=== PATIENT | female | born 2000 | race African-American/Black ===

== ENCOUNTER 2022-08-28 18:45 | Observation (INO) | payer MEDICAID ==
[~2022-08-28] VITALS: Ht 165.1 cm; Wt 142.9 kg
[2022-08-28] MEDS ORDERED: PNV1TABL76 PO (19:42)
== END 2022-08-28 23:45 | disposition hospice, home (50) ==
LOC: INTOOBSV 18:45 → 8 EST LDRP 18:45
PROVIDERS: ADMIT Obstetrics & Gynecology; ATTEND Obstetrics & Gynecology
DX: O36.8130 Decreased fetal movements, third trimester, not applicable or unspecified (principal); Z3A.39 39 weeks gestation of pregnancy
CPT/HCPCS: 59025; 76815; 76818; G0378; 99281

== ENCOUNTER 2022-08-31 15:35 | Observation (INO) | payer MEDICAID ==
[~2022-08-31] VITALS: Ht 165.1 cm; Wt 142.9 kg
[~2022-08-31 15:35] MED LIST: PNV1TABL76 PO
== END 2022-08-31 17:55 | disposition home or self-care (01) ==
LOC: 8 EST LDRP 15:35
PROVIDERS: ADMIT Obstetrics & Gynecology; ATTEND Obstetrics & Gynecology
DX: O62.9 Abnormality of forces of labor, unspecified (principal); Z3A.39 39 weeks gestation of pregnancy
CPT/HCPCS: 59025; G0378; 99281

== ENCOUNTER 2022-09-02 14:27 | Inpatient (IN) | payer MEDICAID ==
[~2022-09-02] VITALS: Ht 167.6 cm; Wt 142.9 kg
[2022-09-02] MEDS ORDERED: BUTORPHANOL TARTRATE 2 MG/ML VIAL IV PRN (15:30)
[2022-09-02] MEDS ORDERED: METHYLERGONOVINE MALEATE 0.2 MG/ML IM PRN (15:30)
[2022-09-02] MEDS ORDERED: NALOXONE HCL 0.4 MG/ML 1ML VIAL IM PRN (15:30)
[2022-09-02] MEDS ORDERED: LIDOCAINE HCL 1% 20ML VIAL (Pyxis) INJ INFIL SCH (15:30)
[2022-09-02] MEDS: LACTATED RINGERS 1,000 ML IV SCH ×2 (15:49→18:54)
[2022-09-02] MEDS: OXYTOCIN 30 UNITS/500ML NS PMX 500 ML IV SCH ×2 (15:58→23:37)
[2022-09-02 16:06] LABS: CLARITY URINE CLEAR (CLEAR); COLOR URINE DARK YELLOW (YELLOW); KETONES URINE TRACE (NEGATIVE); LEUKOCYTE ESTERASE URINE TRACE (NEGATIVE); NITRITE URINE NEGATIVE (NEGATIVE); OCCULT BLOOD URINE TRACE (NEGATIVE); PH URINE 5.5 (4.5-8.0); PROTEIN URINE TRACE (NEGATIVE); SPECIFIC GRAVITY URINE 1.024 (1.005-1.030)
[2022-09-02 16:12] LABS: BASOPHILS % 0.2 % (0.0-2.0); EOSINOPHILS % 1.7 % (0.0-5.0); HEMATOCRIT. 31.4 % (36.0-48.0); HEMOGLOBIN. 10.4 g/dL (12.0-16.0); LYMPHOCYTES % 12.8 % (20.0-50.0); MEAN CORPUSCULAR VOLUME 78.2 fL (81.0-99.0); MONOCYTES % 8.7 % (2.0-8.0); NEUTROPHILS % 76.6 % (40.0-76.0); PLATELET 305 x1000/uL (130-400); RED BLOOD CELL COUNT 4.01 mill/uL (4.2-5.4); RED CELL DISTRIBUTION WIDTH 16.7 % (11.6-14.6)
[2022-09-02 16:20] LABS: *AMPHETAMINES SCREEN URINE NEGATIVE (NEGATIVE); *BARBITURATES SCREEN URINE NEGATIVE (NEGATIVE); *BENZODIAZEPINES SCREEN URINE NEGATIVE (NEGATIVE); *COCAINE SCREEN URINE NEGATIVE (NEGATIVE); CANNABINOID URINE SCREEN NEGATIVE (NEGATIVE); METHADONE URINE SCREEN NEGATIVE (NEGATIVE); OPIATES URINE SCREEN NEGATIVE (NEGATIVE); PHENCYCLIDINE URINE SCREEN NEGATIVE (NEGATIVE)
[2022-09-02 16:23] LABS: INR 0.9; PARTIAL THROMBOPLASTIN TIME 24.8 sec (23.4-31.0); PROTHROMBIN TIME 9.8 sec (9.6-11.0)
[2022-09-02] MEDS ORDERED: ROPIVACAINE HCL/PF EPIDURAL 200 ML EPI SCH (18:00)
[2022-09-02] MEDS ORDERED: ROPIVACAINE HCL/PF EPIDURAL 200 ML EPI ONE (18:17)
[2022-09-02] MEDS ORDERED: IBUPROFEN 400MG TABLET PO PRN (20:45)
[2022-09-02] MEDS ORDERED: LANOLIN OINT 7GM TUBE TOP PRN (20:45)
[2022-09-02] MEDS ORDERED: RHO(D) IMMUNE GLOBULIN 300 MCG/SYR IM PRN (20:45)
[2022-09-02] MEDS ORDERED: BISACODYL 10MG SUPP PR PRN (20:45)
[2022-09-02] MEDS ORDERED: BENZOCAINE/LANOLIN/ALOE VERA SPRAY TOP PRN (20:45)
[2022-09-02] MEDS ORDERED: GLYCERIN/WITCH HAZEL LEAF MEDICATED PAD TOP PRN (20:45)
[2022-09-02] MEDS ORDERED: HEMORRHOIDAL SUPP PR PRN (20:45)
[2022-09-02] MEDS ORDERED: OXYCODONE HCL/ACETAMINOPHEN 5/325MG TABLET PO PRN (20:45)
[2022-09-02] MEDS ORDERED: DIPHENHYDRAMINE 25MG CAPSULE PO PRN (20:45)
[2022-09-02] MEDS ORDERED: DOCUSATE SODIUM 100MG CAPSULE PO SCH (21:00)
[2022-09-02 23:50] VITALS: BP 108/54
[2022-09-03] MEDS: IBUPROFEN 800MG TABLET PO PRN ×2 (00:18→22:56)
[2022-09-03 01:00] VITALS: BP 97/52
[2022-09-03 04:00] VITALS: BP 106/52
[2022-09-03] MEDS: FERROUS SULFATE 325MG TABLET PO SCH ×3 (07:30→17:27)
[2022-09-03] MEDS: MAGNESIUM/ALUMINUM HYDROXIDE/SIMETHICONE 30ML UDC PO SCH ×4 (07:30→22:55)
[2022-09-03 07:35] LABS: BASOPHILS % 0.2 % (0.0-2.0); EOSINOPHILS % 0.7 % (0.0-5.0); HEMATOCRIT. 28.7 % (36.0-48.0); HEMOGLOBIN. 9.5 g/dL (12.0-16.0); LYMPHOCYTES % 10.7 % (20.0-50.0); MEAN CORPUSCULAR HEMOGLOBIN 25.9 pg (28.0-32.0); MEAN CORPUSCULAR VOLUME 78.4 fL (81.0-99.0); MEAN PLATELET VOLUME 8.8 fl (7.4-10.4); MONOCYTES % 10.4 % (2.0-8.0); PLATELET 268 x1000/uL (130-400); RED BLOOD CELL COUNT 3.66 mill/uL (4.2-5.4); RED CELL DISTRIBUTION WIDTH 16.3 % (11.6-14.6)
[2022-09-03] MEDS: SIMETHICONE 80MG TABLET CHEW PO SCH ×4 (07:58→22:55)
[2022-09-03] MEDS: PRENATAL VIT/FE FUMARATE/FA TABLET PO SCH (08:00)
[2022-09-03 08:11] VITALS: BP_SYST 104; BP_SYST 127; BP_DIAS 50; BP_DIAS 68
[2022-09-03] MEDS ORDERED: INFLUENZA VACCINE 05/PF 0.5 ML SYRINGE IM ONE (11:00)
[2022-09-03] MEDS ORDERED: TETANUS, DIPHTHERIA, PERTUSSIS VAC/PF 0.5ML (>10YR OLD) IM ONE (11:00)
[2022-09-03 16:00] VITALS: BP 106/49
[2022-09-03 20:00] VITALS: BP 104/69
[2022-09-04 04:00] VITALS: BP 109/52
[2022-09-04] MEDS: FERROUS SULFATE 325MG TABLET PO SCH (07:30)
[2022-09-04] MEDS: MAGNESIUM/ALUMINUM HYDROXIDE/SIMETHICONE 30ML UDC PO SCH (07:30)
[2022-09-04 07:37] LABS: BASOPHILS % 0.4 % (0.0-2.0); EOSINOPHILS % 2.4 % (0.0-5.0); HEMATOCRIT. 28.7 % (36.0-48.0); HEMOGLOBIN. 9.4 g/dL (12.0-16.0); MEAN CORPUSCULAR HEMOGLOBIN 25.8 pg (28.0-32.0); MEAN CORPUSCULAR VOLUME 78.9 fL (81.0-99.0); MEAN PLATELET VOLUME 9.3 fl (7.4-10.4); MONOCYTES % 8.3 % (2.0-8.0); NEUTROPHILS % 68.9 % (40.0-76.0); PLATELET 254 x1000/uL (130-400); RED BLOOD CELL COUNT 3.64 mill/uL (4.2-5.4); RED CELL DISTRIBUTION WIDTH 16.8 % (11.6-14.6)
[2022-09-04] MEDS ORDERED: IBUP-2030 PO (07:52)
[2022-09-04 08:00] VITALS: BP 110/63
[2022-09-04] MEDS: SIMETHICONE 80MG TABLET CHEW PO SCH (08:00)
[2022-09-04] MEDS: PRENATAL VIT/FE FUMARATE/FA TABLET PO SCH (08:01)
[2022-09-08 00:04] LABS: HEPATITIS B SURFACE ANTIGEN NEGATIVE
== END 2022-09-04 13:20 | disposition home or self-care (01) | DRG 560 ==
LOC: L&D 14:27 → 8 EST LDRP 14:29 → 8EST 23:40
PROVIDERS: ADMIT Obstetrics & Gynecology; ATTEND Obstetrics & Gynecology
PROC: 10D07Z6 Extraction of Products of Conception, Vacuum, Via Natural or Artificial Opening (ICD-10-PCS; principal; 2022-09-02)
PROC: 0KQM0ZZ Repair Perineum Muscle, Open Approach (ICD-10-PCS; 2022-09-02)
PROC: 3E0R3BZ Introduction of Anesthetic Agent into Spinal Canal, Percutaneous Approach (ICD-10-PCS; 2022-09-02)
PROC: 00HU33Z Insertion of Infusion Device into Spinal Canal, Percutaneous Approach (ICD-10-PCS; 2022-09-02)
DX: O99.02 Anemia complicating childbirth (principal); Z37.0 Single live birth; Z68.43 Body mass index [BMI] 50.0-59.9, adult; O70.1 Second degree perineal laceration during delivery; O99.214 Obesity complicating childbirth; Z20.822 Contact with and (suspected) exposure to COVID-19; Z3A.39 39 weeks gestation of pregnancy
CPT/HCPCS: 36415; 76805; 80305; 81003; 85025; 86592; 86703; 86762; 86850; 86900; 87340; 87426; 90686; 90715; 99281; J0595; J2795; J7120; A4315; J2590